=== PATIENT | female | born 1940 | race Caucasian/White ===

== ENCOUNTER → 2018-04-19 | Outpatient (CLI) | payer MEDICARE, OTHER | END | disposition home or self-care (01) | LOC: HKI 10:36 | DX: M16.12 Unilateral primary osteoarthritis, left hip (principal); M17.11 Unilateral primary osteoarthritis, right knee; I10 Essential (primary) hypertension; Z79.82 Long term (current) use of aspirin | CPT/HCPCS: 73502; 73562-50 ==

== ENCOUNTER → 2018-05-24 | Outpatient (CLI) | payer MEDICARE, OTHER | END | disposition home or self-care (01) | LOC: HKI 11:38 | DX: Z01.818 Encounter for other preprocedural examination (principal); M16.12 Unilateral primary osteoarthritis, left hip | CPT/HCPCS: G0463 ==

== ENCOUNTER 2018-06-03 05:29 | Inpatient (IN) | payer MEDICARE, OTHER ==
[2018-06-03] MEDS: ACETAMINOPHEN 1000MG/100ML IV 100 ML IVPB (06:17)
[2018-06-03] MEDS: LACTATED RINGER'S 1,000 ML IV (06:17)
[2018-06-03] MEDS: ONDANSETRON 4 MG INJ IV ×4 (06:18→19:30)
[2018-06-03] MEDS: DEXAMETHASONE 4 MG/ML 1 ML INJ IV (06:19)
[2018-06-03] MEDS: LANSOPRAZOLE 30 MG CAP PO (06:50)
[2018-06-03] MEDS ORDERED: TRANEXAMIC ACID 1,000 MG in D5W 100 ML AT INCISION X1 IVPB (07:00)
[2018-06-03] MEDS ORDERED: TRANEXAMIC ACID 1,000 MG in D5W 100 ML AT CLOSURE X1 IVPB (07:00)
[2018-06-03] MEDS ORDERED: CEFAZOLIN 2 GM/50 ML (PMX) 50 ML (FOR WT < 120 KG) IVPB (07:00)
[2018-06-03] MEDS ORDERED: EPHEDrine SULFATE 50 MG/5 ML SYG (07:00)
[2018-06-03] MEDS ORDERED: oxyCODONE 5 MG TAB PO ×2 (07:30)
[2018-06-03] MEDS ORDERED: BETHANECHOL 25 MG TAB PO (07:30)
[2018-06-03] MEDS ORDERED: DIPHENHYDRAMINE 50 MG INJ IV ×3 (07:30→08:30)
[2018-06-03] MEDS ORDERED: BISACODYL 10 MG SUPP PR (07:30)
[2018-06-03] MEDS ORDERED: NACL 0.9% 3 ML SYG IV (07:30)
[2018-06-03] MEDS ORDERED: NALOXONE (0.4 MG/ML) INJ IV ×2 (07:30→08:30)
[2018-06-03] MEDS ORDERED: NA PHOSPHATE/BIPHOS 133 ML ENEMA PR (07:30)
[2018-06-03] MEDS ORDERED: MAGNESIUM HYDROXIDE 30ML CUP PO (07:30)
[2018-06-03] MEDS ORDERED: MIDAZOLAM 1 MG/ML 2 ML INJ (07:34)
[2018-06-03] MEDS ORDERED: CEFAZOLIN 1 GM INJ (07:34)
[2018-06-03] MEDS ORDERED: PROPOFOL 20 ML (07:34)
[2018-06-03] MEDS ORDERED: ROCURONIUM 50 MG INJ (07:34)
[2018-06-03] MEDS ORDERED: FENTAnyl 50 MCG/ML VIAL (07:34)
[2018-06-03] MEDS ORDERED: ROPIVACAINE 0.5 % 30 ML VIAL (07:35)
[2018-06-03] MEDS ORDERED: BUPIVACAINE 0.75%/DEXT (SPINAL) 2 ML INJ (07:46)
[2018-06-03] MEDS ORDERED: PHENYLephrine (100 MCG/ML) 5ML SYG (08:00)
[2018-06-03] MEDS ORDERED: DEXAMETHASONE 4 MG/ML 1 ML INJ (08:03)
[2018-06-03] MEDS ORDERED: METOCLOPRAMIDE 10 MG INJ (08:03)
[2018-06-03] MEDS ORDERED: ONDANSETRON 4 MG INJ (08:03)
[2018-06-03] MEDS: BACITRACIN 50000 UNITS INJ (08:23)
[2018-06-03] MEDS: POLYMYXIN B 500000 UNIT INJ (08:23)
[2018-06-03] MEDS ORDERED: ALBUMIN HUMAN 5% 250 ML IV (08:30)
[2018-06-03] MEDS ORDERED: morphine 2 MG INJ IV ×2 (08:30)
[2018-06-03] MEDS ORDERED: MEPERIDINE 25 MG INJ IV (08:30)
[2018-06-03] MEDS ORDERED: FENTAnyl 50 MCG/ML VIAL IV ×2 (08:30)
[2018-06-03] MEDS ORDERED: HYDROCODONE/APAP (5/325) TAB PO (08:30)
[2018-06-03] MEDS ORDERED: EPHEDrine SULFATE 50 MG/5 ML SYG IV (08:30)
[2018-06-03] MEDS ORDERED: LABETALOL HCL 20MG INJ IV (08:30)
[2018-06-03] MEDS ORDERED: HYDROmorphONE 0.5 MG/0.5 ML SYG IV ×2 (08:30)
[2018-06-03] MEDS ORDERED: HYDROmorphONE 1 MG/5 ML IV SYRINGE IV ×2 (08:30)
[2018-06-03] MEDS ORDERED: NALBUPHINE HCL (10 MG/1 ML) INJ IV (08:30)
[2018-06-03] MEDS ORDERED: ONDANSETRON 4 MG INJ IV ×2 (08:30)
[2018-06-03] MEDS ORDERED: hydrALAzine 20 MG INJ IV (08:30)
[2018-06-03] MEDS: CEFAZOLIN 1 GM/50 ML (PMX) 50 ML IVPB ×3 (10:14→23:10)
[2018-06-03] MEDS: ASPIRIN (EC) 325 MG TAB PO (10:15)
[2018-06-03] MEDS: DOCUSATE SODIUM 100 MG CAP PO (10:15)
[2018-06-03] MEDS: FENTANYL XX (12:27)
[2018-06-03] MEDS: [UNRECOGNIZED DRUG - OTHER] XX (12:27)
[2018-06-03] MEDS: SOD CHLORIDE 0.9% 1,000 ML IV (14:00)
[2018-06-03] MEDS: GABAPENTIN 100 MG CAP PO ×2 (14:00→20:52)
[2018-06-04] MEDS: ONDANSETRON 4 MG INJ IV (01:30)
[2018-06-04] MEDS: SOD CHLORIDE 0.9% 1,000 ML IV (04:10)
[2018-06-04 05:26] LABS: ADD MAN DIFF? NO
[2018-06-04 05:30] LABS: BASOPHILS % 0.2 % (0.0-2.0); LYMPHOCYTES # 1.3 10^3/ul (0.8-2.9); LYMPHOCYTES % 11.7 % (15.0-51.0); MEAN CORPUSCULAR HEMOGLOBIN 31.8 pg (29.0-33.0); MEAN CORPUSCULAR HGB CONC 33.3 g/dl (32.0-37.0); MEAN CORPUSCULAR VOLUME 95.4 fl (82.0-101.0); MEAN PLATELET VOLUME 9.4 fl (7.4-10.4); MONOCYTE # 1.1 10^3/ul (0.3-0.9); MONOCYTES % 10.3 % (0.0-11.0); NEUTROPHIL # 8.5 10^3/ul (1.6-7.5); NEUTROPHILS % 77.3 % (39.0-77.0); PLATELET COUNT 210 10^3/UL (140-415); RED BLOOD COUNT 3.46 10^6/ul (4.20-5.40); RED CELL DISTRIBUTION WIDTH 12.4 % (11.5-14.5)
[2018-06-04] MEDS: PANTOPRAZOLE (EC) 40 MG TAB PO (05:32)
[2018-06-04 06:03] LABS: ANION GAP 9 (8-16); BLOOD UREA NITROGEN 12 mg/dl (7-20); CARBON DIOXIDE 29 mmol/L (21-31); CHLORIDE 109 mmol/L (97-110); CREATININE 0.67 mg/dl (0.44-1.00); GLUCOSE 126 mg/dl (70-220); POTASSIUM 4.3 mmol/L (3.5-5.1); SODIUM 143 mmol/L (135-144)
[2018-06-04] MEDS: LACTATED RINGER'S 1,000 ML IV (07:00)
[2018-06-04] MEDS: DOCUSATE SODIUM 100 MG CAP PO ×2 (08:57→20:44)
[2018-06-04] MEDS: ASPIRIN (EC) 325 MG TAB PO (09:00)
[2018-06-04] MEDS: CYANOCOBALAMIN 500 MCG TAB PO (09:00)
[2018-06-04] MEDS: CELECOXIB 100 MG CAP PO ×2 (09:00→20:44)
[2018-06-04] MEDS: CHOLECALCIFEROL 1,000 UNIT TAB PO (09:01)
[2018-06-04] MEDS: GABAPENTIN 100 MG CAP PO ×2 (09:01→20:43)
[2018-06-04] MEDS: FERROUS FUMARATE (SR) TAB PO ×2 (09:01→20:43)
[2018-06-04] MEDS: METOPROLOL (XL) 25 MG TAB PO (09:03)
[2018-06-04] MEDS: HYDROCHLOROTHIAZIDE 12.5 MG CAP PO (12:02)
[2018-06-04] MEDS: oxyCODONE 5 MG TAB PO (16:33)
[2018-06-04] MEDS: MAGNESIUM OXIDE 400 MG TAB PO (16:33)
[2018-06-04] MEDS: SENNA/DOCUSATE NA (8.6MG/50MG) TAB PO (16:35)
[2018-06-05 05:24] LABS: ADD MAN DIFF? NO
[2018-06-05 05:25] LABS: WHITE BLOOD COUNT 9.8 10^3/ul (4.8-10.8)
[2018-06-05 05:26] LABS: BASOPHIL # 0.1 10^3/ul (0.0-0.1); BASOPHILS % 0.6 % (0.0-2.0); EOSINOPHILS # 0.3 10^3/ul (0.0-0.5); EOSINOPHILS % 2.5 % (0.0-7.0); HEMOGLOBIN 10.3 g/dl (12.0-16.0); IMMATURE GRANS #M 0.03 10^3/ul; IMMATURE GRANS % (M) 0.3 %; LYMPHOCYTES # 1.7 10^3/ul (0.8-2.9); LYMPHOCYTES % 16.9 % (15.0-51.0); MEAN CORPUSCULAR HEMOGLOBIN 31.4 pg (29.0-33.0); MEAN CORPUSCULAR HGB CONC 33.2 g/dl (32.0-37.0); MEAN CORPUSCULAR VOLUME 94.5 fl (82.0-101.0); MEAN PLATELET VOLUME 9.7 fl (7.4-10.4); MONOCYTE # 1.2 10^3/ul (0.3-0.9); MONOCYTES % 12.3 % (0.0-11.0); NEUTROPHIL # 6.6 10^3/ul (1.6-7.5); NEUTROPHILS % 67.4 % (39.0-77.0); PLATELET COUNT 173 10^3/UL (140-415); RED BLOOD COUNT 3.28 10^6/ul (4.20-5.40); RED CELL DISTRIBUTION WIDTH 12.6 % (11.5-14.5)
[2018-06-05 06:03] LABS: ANION GAP 10 (8-16); BLOOD UREA NITROGEN 14 mg/dl (7-20); CALCIUM 9.4 mg/dl (8.4-10.2); CARBON DIOXIDE 28 mmol/L (21-31); CHLORIDE 106 mmol/L (97-110); CREATININE 0.71 mg/dl (0.44-1.00); GLUCOSE 108 mg/dl (70-220); SODIUM 140 mmol/L (135-144)
[2018-06-05] MEDS: PANTOPRAZOLE (EC) 40 MG TAB PO (06:09)
[2018-06-05] MEDS: DOCUSATE SODIUM 100 MG CAP PO ×2 (08:56→20:26)
[2018-06-05] MEDS: SENNA/DOCUSATE NA (8.6MG/50MG) TAB PO (08:56)
[2018-06-05] MEDS: MAGNESIUM OXIDE 400 MG TAB PO (08:57)
[2018-06-05] MEDS: METOPROLOL (XL) 25 MG TAB PO (08:57)
[2018-06-05] MEDS: CYANOCOBALAMIN 500 MCG TAB PO (08:57)
[2018-06-05] MEDS: ASPIRIN (EC) 325 MG TAB PO (08:58)
[2018-06-05] MEDS: GABAPENTIN 100 MG CAP PO ×2 (08:58→20:26)
[2018-06-05] MEDS: CELECOXIB 100 MG CAP PO ×2 (08:58→20:26)
[2018-06-05] MEDS: CHOLECALCIFEROL 1,000 UNIT TAB PO (08:58)
[2018-06-05] MEDS: FERROUS FUMARATE (SR) TAB PO ×2 (08:58→20:26)
[2018-06-05] MEDS: oxyCODONE 5 MG TAB PO (09:18)
[2018-06-05] MEDS: HYDROCHLOROTHIAZIDE 12.5 MG CAP PO (09:21)
[2018-06-05] MEDS: ACETAMINOPHEN 500 MG TAB PO (20:32)
[2018-06-06 05:09] LABS: ADD MAN DIFF? NO
[2018-06-06 05:16] LABS: BASOPHIL # 0.1 10^3/ul (0.0-0.1); BASOPHILS % 0.7 % (0.0-2.0); EOSINOPHILS # 0.7 10^3/ul (0.0-0.5); EOSINOPHILS % 7.7 % (0.0-7.0); HEMATOCRIT 31.6 % (37.0-47.0); HEMOGLOBIN 10.4 g/dl (12.0-16.0); IMMATURE GRANS #M 0.04 10^3/ul; IMMATURE GRANS % (M) 0.4 %; LYMPHOCYTES # 1.9 10^3/ul (0.8-2.9); LYMPHOCYTES % 20.2 % (15.0-51.0); MEAN CORPUSCULAR HGB CONC 32.9 g/dl (32.0-37.0); MEAN CORPUSCULAR VOLUME 94.3 fl (82.0-101.0); MEAN PLATELET VOLUME 9.7 fl (7.4-10.4); MONOCYTE # 0.9 10^3/ul (0.3-0.9); MONOCYTES % 9.8 % (0.0-11.0); NEUTROPHIL # 5.6 10^3/ul (1.6-7.5); NEUTROPHILS % 61.2 % (39.0-77.0); PLATELET COUNT 187 10^3/UL (140-415); RED BLOOD COUNT 3.35 10^6/ul (4.20-5.40); RED CELL DISTRIBUTION WIDTH 12.5 % (11.5-14.5)
[2018-06-06 05:16] LABS: WHITE BLOOD COUNT 9.2 10^3/ul (4.8-10.8)
[2018-06-06 05:25] LABS: ANION GAP 9 (8-16); BLOOD UREA NITROGEN 11 mg/dl (7-20); CALCIUM 9.5 mg/dl (8.4-10.2); CARBON DIOXIDE 31 mmol/L (21-31); CHLORIDE 103 mmol/L (97-110); GLUCOSE 109 mg/dl (70-220); POTASSIUM 3.8 mmol/L (3.5-5.1); SODIUM 139 mmol/L (135-144)
[2018-06-06] MEDS: PANTOPRAZOLE (EC) 40 MG TAB PO (06:30)
[2018-06-06] MEDS: DOCUSATE SODIUM 100 MG CAP PO (09:00)
[2018-06-06] MEDS: CELECOXIB 100 MG CAP PO (09:00)
[2018-06-06] MEDS: ASPIRIN (EC) 325 MG TAB PO (10:36)
[2018-06-06] MEDS: METOPROLOL (XL) 25 MG TAB PO (10:36)
[2018-06-06] MEDS: MAGNESIUM OXIDE 400 MG TAB PO (10:36)
[2018-06-06] MEDS: HYDROCHLOROTHIAZIDE 12.5 MG CAP PO (10:37)
[2018-06-06] MEDS: CYANOCOBALAMIN 500 MCG TAB PO (10:37)
[2018-06-06] MEDS: CHOLECALCIFEROL 1,000 UNIT TAB PO (10:37)
[2018-06-06] MEDS: GABAPENTIN 100 MG CAP PO (10:37)
[2018-06-06] MEDS: FERROUS FUMARATE (SR) TAB PO (10:38)
[2018-06-06] MEDS: ACETAMINOPHEN 500 MG TAB PO (10:53)
== END 2018-06-06 14:20 | disposition home health service (06) | DRG 470 ==
LOC: REC 05:29 → MS1 11:21
PROC: 0SRB04A Replacement of Left Hip Joint with Ceramic on Polyethylene Synthetic Substitute, Uncemented, Open Approach (ICD-10-PCS; principal; 2018-06-03 07:30)
DX: M16.12 Unilateral primary osteoarthritis, left hip (principal); I10 Essential (primary) hypertension
CPT/HCPCS: 73530; 80048; 85025; 86850; 86900; 86901; 87081; 88304; 88311; 97110; 97116; 97163; 97166; 97530

== ENCOUNTER → 2018-06-14 | Outpatient (CLI) | payer MEDICARE, OTHER | END | disposition home or self-care (01) | LOC: HKI 10:28 | DX: Z47.1 Aftercare following joint replacement surgery (principal); Z96.642 Presence of left artificial hip joint | CPT/HCPCS: 73502 ==

== ENCOUNTER → 2018-07-12 | Outpatient (CLI) | payer MEDICARE, OTHER | END | disposition home or self-care (01) | LOC: HKI 10:25 | DX: Z47.1 Aftercare following joint replacement surgery (principal); Z96.642 Presence of left artificial hip joint | CPT/HCPCS: 73502 ==

== ENCOUNTER → 2018-10-04 | Outpatient (CLI) | payer MEDICARE, OTHER | END | disposition home or self-care (01) | LOC: HKI 10:35 | DX: M17.11 Unilateral primary osteoarthritis, right knee (principal) | CPT/HCPCS: 73502 ==